=== PATIENT | female | born 2000 | race Caucasian/White ===

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

== ENCOUNTER → 2019-01-07 | Outpatient (CLI) | payer OTHER ==
--- NOTE | 2019-01-07 17:39 | US ---
EXAMINATION TYPE: US OB anatomy transabd DATE OF EXAM: 01/07/2019 COMPARISON: US 11/09/2018 HISTORY: Z34.90 SUPERVISION OF NORMAL TECHNIQUE: Transabdominal (TA) EXAM MEASUREMENTS: GESTATIONAL AGE / DATING Physician Established: (20 weeks/3 days) EDC: 05/24/2019 Dates by LMP: Does not correlate Dates by First Scan: ( weeks/ days) EDC: 05/24/2019 Dates by Current Scan for: (21 weeks/3 days) EDC: 05/17/2019 SURVEY IUP: Single PLACENTA: Posterior PREVIA: No previa LORI: 17.4 cm Normal CERVICAL LENGTH (transabdominal: norm > 3.0cm): 3.3 cm BIOMETRY PRESENTATION: Vertex LIE: Longitudinal BPD: 5.5 cm 22 weeks / 4 days HC: 19.3 cm 21 weeks / 3 days AC: 16.9 cm 21 weeks / 6 days FL: 3.6 cm 21 weeks / 2 days ESTIMATED WEIGHT IN GRAMS: 437.8 grams ESTIMATED WEIGHT IN LBS/OZ: 0 lbs. 15 oz. WEIGHT PERCENTAGE BASED ON ESTABLISHED DATE: 95.9 % HC/AC: 1.14 Normal FL/AC: 20.98 Normal HEART RATE: 146 bpm RHYTHM: Normal ANATOMY SEEN (within normal limits): Stomach Situs Nose / Lips Diaphragm Kidneys (bilateral) Bladder Cord Insert Three Vessel Cord Longitudinal Spine Transverse Spine Arms (bilateral) Legs (bilateral) ANATOMY SEEN (does not appear within normal limits): * Lateral Vent (< 1 cm) Unable to visualize * Cisterna Magna (< 1.1 cm) 0.2 cm * Nuchal Fold (< 0.6 cm) 0.3 cm * Cerebellum (varies with age) 1.9 cm Choroid Plexus (bilateral)- Not visualized Midline Falx - Not visualized Cavus Septi Pellucidi -Not visualized ANATOMY NOT SEEN due to position: Four Chamber Heart Outflow tracts: LVOT/RVOT Viable IUP with an KHUSHBOO of 05/17/2019 by this exam. head structures appear abnormal. Two techs s canned to confirm. Message left at Dr. Do's office at time of exam. IMPRESSION: The ultrasound gestational age is 21 weeks and 3 days. head shows abnormal internal anatomy wit h multiple fluid cystic areas. This could relate to hydrocephalus or porencephaly. Follow-up recommen ded.
== END | disposition home or self-care (01) ==
LOC: RADUSWWP 15:57
PROVIDERS: ATTEND Obstetrics & Gynecology
DX: O35.8XX0 Maternal care for other (suspected) fetal abnormality and damage, not applicable or unspecified (principal); Z3A.21 21 weeks gestation of pregnancy
CPT/HCPCS: 76811

== ENCOUNTER 2024-05-09 21:45 | Inpatient (IN) | payer OTHER ==
[~2024-05-09 21:45] MED LIST: NICOTINE 14MG/24HR PATCH TRANSDERM ONE
[2024-05-09] MEDS ORDERED: LORazepam 1 MG TAB ONE (23:53)
[2024-05-10] MEDS ORDERED: NICOTINE 14MG/24HR PATCH TRANSDERM ONE (08:23)
[2024-05-10] MEDS ORDERED: LORazepam 1 MG TAB ONE (08:41)
[2024-05-10] MEDS ORDERED: SERTRALINE 25 MG TAB ONE (11:35)
[2024-05-10] MEDS ORDERED: hydrOXYzine pamoate 25 MG CAP ONE ×2 (11:37→18:40)
[2024-05-10] MEDS ORDERED: hydrOXYzine HCL 25 MG TAB ONE (20:30)
[2024-05-10] MEDS ORDERED: traZODone HCL 50 MG TAB ONE (20:31)
[2024-05-11] MEDS ORDERED: SERTRALINE 25 MG TAB ONE (08:00)
[2024-05-11] MEDS ORDERED: NICOTINE 14MG/24HR PATCH TRANSDERM ONE (08:00)
[2024-05-11] MEDS ORDERED: hydrOXYzine pamoate 25 MG CAP ONE ×3 (08:43→20:36)
[2024-05-11] MEDS ORDERED: haloperidoL 5 MG TAB ONE ×2 (13:57→20:36)
[2024-05-11] MEDS ORDERED: traZODone HCL 50 MG TAB ONE (20:16)
[2024-05-12] MEDS ORDERED: MAG HYDROX/AL HYDROX/SIMETH 30 ML CUP PO PRN
[2024-05-12] MEDS ORDERED: HALOPERIDOL LACTATE 5 MG/ML 1 ML VIAL IM PRN
[2024-05-12] MEDS ORDERED: ACETAMINOPHEN TAB 325 MG TAB PO PRN
[2024-05-12] MEDS ORDERED: LORazepam 2 MG/ML INJ IM PRN ×2 (05:08)
[2024-05-12] MEDS ORDERED: MAGNESIUM HYDROXIDE 2,400 MG/30 ML CUP PO PRN (09:00)
[2024-05-12] MEDS: NICOTINE 14MG/24HR PATCH TRANSDERM SCH (09:13)
[2024-05-12] MEDS: SERTRALINE 25 MG TAB PO SCH (09:13)
[2024-05-12] MEDS: hydrOXYzine HCL 25 MG TAB PO PRN (09:16)
--- NOTE | 2024-05-12 10:57 | P.PN ---
Progress Note - Text Progress Note Date: 05/12/24 The patient was seen and chart was reviewed and case discussed with nursing staff Patient reports that she does get somewhat garcia and irritated She also reports that she has been having difficulty with insomnia and nighttime We discussed a trial of mood stabilizer and patient agreed to take the Depakote Discussed effects and side effects Patient denies any suicidal ideations or plans at this time Alert and attentive. Orientation times three. Dressed and Groomed: Glasses appropriately. Casually dressed and groomed Pleasant and cooperative. Psychomotor Activity: Normal. Speech: Normal in tone, quality, and quantity. Mood: Blunted Affect: Blunted SI or HI: None. Perceptual disturbance: None. Thought Content: No paranoia or other delusional thinking noted. Thought Process: Normal. Cognition: Intact Judgment and Insight: Good AIMS: Normal. Labs: No new labs. Plan and Recommendations: Continue current Medications. Monitor MS and side effects of medications and adjust medications accordingly. Provide supportive psychotherapy. The patient provided psychoeducation The patient to attend parekh activities. Medication Consent with explanation of risk/benefits and side effects: Explained and obtained. New medication added Depakote ER 500 mg at bedtime Discussed effects and side effects Active Medications Generic Name Dose Route Start Last Admin Trade Name Freq PRN Reason Stop Dose Admin Acetaminophen 650 mg 05/12/24 00:00 Acetaminophen Tab 325 Mg Tab PO Q4H PRN Pain Al Hydroxide/Mg Hydroxide 30 ml 05/12/24 00:00 Mag Hydrox/Al Hydrox/Simeth 30 Ml Cup PO Q4HR PRN GI Upset Divalproex Sodium 500 mg 05/13/24 21:00 Divalproex Er 500 Mg Tab.Er.24h PO DAILY PUNEET Haloperidol 5 mg 05/12/24 00:00 Haloperidol 5 Mg Tab PO Q6H PRN AGITATION Haloperidol Lactate 5 mg 05/12/24 00:00 Haloperidol Lactate 5 Mg/Ml 1 Ml Vial IM Q6HR PRN Agitation or Acute Psychosis Hydroxyzine HCl 25 mg 05/12/24 00:00 05/12/24 09:16 Hydroxyzine Hcl 25 Mg Tab PO 25 mg TID PRN Administration SEVERE ITCHING Lorazepam 1 mg 05/12/24 00:00 Lorazepam 1 Mg Tab PO Q6H PRN Anxiety Lorazepam 1 mg 05/12/24 05:08 Lorazepam 2 Mg/Ml Inj IM Q6HR PRN Anxiety Magnesium Hydroxide 2,400 mg 05/12/24 09:00 Magnesium Hydroxide 2,400 Mg/30 Ml Cup PO DAILY PRN CONSTIPATION Nicotine 1 patch 05/12/24 09:00 05/12/24 09:13 Nicotine 14mg/24hr Patch TRANSDERM 1 patch DAILY PUNEET Administration Sertraline HCl 25 mg 05/12/24 09:00 05/12/24 09:13 Sertraline 25 Mg Tab PO 25 mg DAILY PUNEET Administration Trazodone HCl 50 mg 05/12/24 21:00 Trazodone Hcl 50 Mg Tab PO HS PUNEET
[2024-05-12] MEDS: LORazepam 1 MG TAB PO PRN (17:15)
[2024-05-12] MEDS ORDERED: traZODone HCL 50 MG TAB ONE (21:05)
[2024-05-12] MEDS: DIVALPROEX ER 500 MG TAB.ER.24H PO SCH (21:06)
[2024-05-12] MEDS: traZODone HCL 50 MG TAB PO SCH (21:06)
[2024-05-12] MEDS ORDERED: DIVALPROEX ER 500 MG TAB.ER.24H PO ONE (21:06)
[2024-05-13 07:10] VITALS: RESP 14; TEMP 98.1
[2024-05-13] MEDS ORDERED: NICOTINE 14MG/24HR PATCH TRANSDERM ONE (08:37)
[2024-05-13] MEDS ORDERED: SERTRALINE 25 MG TAB ONE (08:37)
[2024-05-13] MEDS: haloperidoL 5 MG TAB PO PRN (08:38)
--- NOTE | 2024-05-13 17:02 | P.PN ---
Progress Note - Text Progress Note Date: 05/13/24 Follow-up Mediation Review Chief Complaint: I am feeling good. Subjective: The patient noted that medications are helping a lot. She is not having any suicidal thoughts. her depression is consistently improving. She reported sleeping eating fine. She reported no side effects. The patient has been attending the groups. The participation is good. The interaction with staff and peers is good. The patient is compliant with treatment recommendations. Leading questions: The patient admitted to Depression and Anxiety. Denied SI or HI. Denied symptoms consistent with psychosis Sleep and Appetite: Improved. Change in family/ living/job/financial/daily routine: No change. Change in medical condition: No change. Change in medications: No change. Side effects from Medications: None. Objective- MSE: Alert and attentive. Orientation times three. Dressed and Groomed: Appropriately. Pleasant and cooperative. Psychomotor Activity: Normal. Speech: Normal in tone, quality, and quantity. Mood: I am feeling much better. Affect: Appropriate to the mood. SI or HI: None. Perceptual disturbance: None. Thought Content: No paranoia or other delusional thinking noted. Thought Process: Normal. Cognition: Intact Judgment and Insight: Fair. AIMS: Normal. Labs: No new labs. Diagnosis: Plan and Recommendations: Continue current Medications. Monitor MS and side effects of medications and adjust medications accordingly. Provide supportive psychotherapy. The patient provided psychoeducation and advised The patient provided Substance abuse counseling. Smoke cessation therapy. The patient to attend parekh activities. CBC with Diff, CMP, TSH, Lipid Profile, HbA1c, EKG, Test ordered. Medication Consent with explanation of risk/benefits and side effects: Explained and obtained.
--- NOTE | 2024-05-14 15:29 | P.PN ---
Progress Note - Text Progress Note Date: 05/14/24 Follow-up Mediation Review Chief Complaint: I am good. Subjective: The patient noted that feeling pretty good. She is not having any suicidal thoughts. her depression is consistently improving. She reported sleeping eating fine. She reported no side effects. The patient has been attending the groups. The participation is good. The interaction with staff and peers is good. The patient is compliant with treatment recommendations. Leading questions: The patient admitted to mild Depression and Anxiety. Denied SI or HI. Denied symptoms consistent with psychosis Sleep and Appetite: Improved. Change in family/ living/job/financial/daily routine: No change. Change in medical condition: No change. Change in medications: No change. Side effects from Medications: None. Objective- MSE: Alert and attentive. Orientation times three. Dressed and Groomed: Appropriately. Pleasant and cooperative. Psychomotor Activity: Normal. Speech: Normal in tone, quality, and quantity. Mood: Good. Affect: Appropriate to the mood. SI or HI: None. Perceptual disturbance: None. Thought Content: No paranoia or other delusional thinking noted. Thought Process: Normal. Cognition: Intact Judgment and Insight: Fair. AIMS: Normal. Labs: No new labs. Diagnosis: No change. Plan and Recommendations: Continue current Medications. Monitor MS and side effects of medications and adjust medications accordingly. Provide supportive psychotherapy. The patient provided psychoeducation and advised The patient provided Substance abuse counseling. Smoke cessation therapy. The patient to attend parekh activities. Medication Consent with explanation of risk/benefits and side effects: Explained and obtained.
[2024-05-15 06:57] VITALS: BP 94/56; PULSE 61
--- NOTE | 2024-06-20 15:51 | PN ---
PROGRESS NOTE SUBJECTIVE: The patient was seen, chart was reviewed, and case discussed with nursing staff. The patient reports that she is feeling somewhat better. She states that she has been grieving the loss of her son that was placed by [facility] in 2019. She said that her grandmother also recently about 3 weeks ago. She said she came in because of suicidal ideations. She also reports that the medications are helping. She said she did not have any psychiatric followup at this plan. At this time, she does intent to followup as an outpatient. She said that she plans to get some outpatient help after she leaves. MENTAL STATUS EXAMINATION: She was neatly dressed, groomed female, who currently appears in no acute physical distress. The patient is already oriented to time, place, and person. Speech was clear and coherent. thought process are goal directed, sequential, logical. The patient states that she does feel bothered about her medication at this time judgment and insight appears to be improved. PLAN: The patient continues to make progress with the current medications. The patient encouraged to continue on current supportive care and activities. The process on the stay would be 3 to 5 days. MMODL / IJN: [id number] /
== END 2024-05-15 14:38 | disposition home or self-care (01) | DRG 754 ==
LOC: 3MHU 21:45
PROVIDERS: ADMIT Psychiatry & Neurology Psychiatry; ATTEND Psychiatry & Neurology Psychiatry
DX: F32.A Depression, unspecified (principal); F41.9 Anxiety disorder, unspecified; G47.00 Insomnia, unspecified; R45.851 Suicidal ideations; F98.8 Other specified behavioral and emotional disorders with onset usually occurring in childhood and adolescence; G25.81 Restless legs syndrome; F43.10 Post-traumatic stress disorder, unspecified; F34.1 Dysthymic disorder; F10.20 Alcohol dependence, uncomplicated; F12.10 Cannabis abuse, uncomplicated; Z79.899 Other long term (current) drug therapy
CPT/HCPCS: 99285